=== PATIENT | female | born 1975 | race Caucasian/White ===

== ENCOUNTER → 2017-05-11 | Outpatient (CLI) | payer BC ==
[~2017-05-11] MED LIST: ASPI1TAB PO; DULO60CA6 PO; HYDR-3729 PO; HYDR118S10 PO; IBP600T1 PO; IBUP-1773 PO; MELA1TAB9 PO; MTF500T PO; MULT1TAB86 PO; TOPI50TA13 PO; TPR25T PO; robitussin; tylenol #3 PO
--- NOTE | 2017-05-12 09:45 | Diagnostic Imaging Report ---
Digital mammogram bilateral screening with tomosynthesis. INDICATION: Screening. This study was compared to the prior exams of 03/03/2016, and 10/24/2014. At this time there are no current complaints. 3D tomographic images fail to show any sign of malignancy. The current study was also evaluated with a Computer Aided Detection (CAD) system. FINDINGS: The fibroglandular tissue in both breasts is heterogeneously dense. This does limit the sensitivity of this exam. Overall, there does not appear to have been any significant change when compared to the prior study. No primary or secondary sign of malignancy is noted. Numerous benign-appearing calcifications are again seen along the medial-most portion of each breast. IMPRESSION: There is no radiographic evidence for malignancy. ACR BI-RADS Category 1: Negative. Result letter will be mailed to the patient. Note: At least 10% of breast cancer is not imaged by mammography. Dictated by: Dictated on workstation # [id number]
== END ==
LOC: RAD 10:29
PROVIDERS: ATTEND Internal Medicine
DX: Z12.31 Encounter for screening mammogram for malignant neoplasm of breast (principal)
CPT/HCPCS: 77067

== ENCOUNTER → 2018-11-15 | Outpatient (CLI) | payer BC ==
--- NOTE | 2018-11-15 11:53 | Diagnostic Imaging Report ---
PROCEDURE: US Thyroid. TECHNIQUE: Multiple Real-time grayscale images were obtained of the thyroid in various projections. INDICATION: Hypothyroidism. COMPARISON: No prior studies are available for comparison. FINDINGS: The right lobe of the thyroid measures 5.9 x 1.4 x 1.7 cm and the left lobe measures 5.9 x 1.3 x 1.5 cm. There are two circumscribed hypoechoic nodules in the right lobe of the thyroid with the largest in the lower pole measuring 12 mm x 17 mm x 9 mm. This does have some central cystic changes present. No microcalcifications are seen. A smaller nodule in the upper pole measures approximately 6 mm x 4 mm. The left lobe does contain small hypoechoic nodules with the largest approximately 9 mm x 6 cm x 10 mm. No microcalcifications are seen. There is also a smaller approximately 5 mm nodule. IMPRESSION: There are bilateral thyroid nodules with the largest in the lower pole of the right lobe. Fine needle aspiration of a dominant nodule in the lower pole of the right lobe could be performed if clinically indicated. Dictated by: Dictated on workstation # [id number]
--- NOTE | 2018-11-15 17:57 | Diagnostic Imaging Report ---
INDICATION: Routine screening. Comparison is made with prior mammogram from 05/11/2017 and 03/03/2016. 2-D and 3-D bilateral screening mammography was performed with a Computer Aided Detection (CAD) system. FINDINGS: Both breasts remain heterogeneously dense, limiting the sensitivity of mammography. The parenchymal pattern is stable. There are benign calcifications in both breasts. No dominant mass or malignant appearing microcalcifications are seen. Axillae are unremarkable. IMPRESSION: No mammographic features suspicious for malignancy are identified. ACR BI-RADS Category 2: Benign findings. Result letter will be mailed to the patient. Note: At least 10% of breast cancer is not imaged by mammography. Dictated by: Dictated on workstation # [id number]
== END ==
LOC: RAD 10:07
PROVIDERS: ATTEND Internal Medicine
DX: Z12.31 Encounter for screening mammogram for malignant neoplasm of breast (principal); E04.2 Nontoxic multinodular goiter
CPT/HCPCS: 76536; 77067

== ENCOUNTER → 2018-11-30 | Outpatient (CLI) | payer BC ==
--- NOTE | 2018-12-01 18:30 | Diagnostic Imaging Report ---
INDICATION: Hypothyroidism. TECHNIQUE: Patient was administered 200 ?Ci of I-123 orally and a 4 hour and 24-hour thyroid uptake and scan was performed. FINDINGS: 4-hour uptake is 36%. 24-hour thyroid uptake is 66%. Normal 24-hour thyroid uptake is 10-30%. Thyroid scan does show homogeneous activity throughout both lobes of the thyroid. No definite hot or cold nodule is detected. IMPRESSION: Findings consistent with hyperthyroidism. No definite hot or cold nodule is identified. Dictated by: Dictated on workstation # [id number]
== END ==
LOC: CARD 11:17
PROVIDERS: ATTEND Internal Medicine
DX: E03.9 Hypothyroidism, unspecified (principal)
CPT/HCPCS: 78014

== ENCOUNTER → 2020-06-22 | Outpatient (CLI) | payer BC ==
[~2020-06-22] MED LIST changes: +AZIT250T12 PO
== END ==
LOC: LABNPT 05:41
PROVIDERS: ATTEND Otolaryngology Otolaryngology/Facial Plastic Surgery
DX: G47.33 Obstructive sleep apnea (adult) (pediatric) (principal); Z20.828 Contact with and (suspected) exposure to other viral communicable diseases
CPT/HCPCS: 87635

== ENCOUNTER 2020-06-26 19:25 | Outpatient (CLI) | payer BC | END 2020-06-27 06:27 | disposition home or self-care (01) | LOC: SLEEP 19:25 | PROVIDERS: ATTEND Otolaryngology Otolaryngology/Facial Plastic Surgery | DX: G47.10 Hypersomnia, unspecified (principal); G47.33 Obstructive sleep apnea (adult) (pediatric); Z86.39 Personal history of other endocrine, nutritional and metabolic disease; Z86.69 Personal history of other diseases of the nervous system and sense organs | CPT/HCPCS: 95810 ==

== ENCOUNTER 2023-04-08 19:26 | Emergency (ER) | payer BC, OTHER ==
[~2023-04-08 19:26] MED LIST changes: +TOPI-241 PO; -TOPI50TA13 PO
[2023-04-08 19:49] LABS: BASOPHILS # (AUTO) 0.1 10^3/uL (0.0-0.1); BASOPHILS % (AUTO) 1 % (0-10); EOSINOPHILS # (AUTO) 0.1 10^3/uL (0.0-0.3); EOSINOPHILS % (AUTO) 1 % (0-10); HEMATOCRIT 40 % (35-52); HEMOGLOBIN 13.7 g/dL (11.5-16.0); LYMPHOCYTES # (AUTO) 1.7 10^3/uL (1.0-4.0); LYMPHOCYTES % (AUTO) 29 % (12-44); MEAN CORPUSCULAR HEMOGLOBIN 32 pg (25-34); MEAN CORPUSCULAR HGB CONC 35 g/dL (32-36); MEAN CORPUSCULAR VOLUME 91 fL (80-99); MEAN PLATELET VOLUME 9.4 fL (9.0-12.2); MONOCYTES # (AUTO) 0.4 10^3/uL (0.0-1.0); MONOCYTES % (AUTO) 6 % (0-12); NEUTROPHILS # (AUTO) 3.8 10^3/uL (1.8-7.8); NEUTROPHILS % (AUTO) 63 % (42-75); PLATELET COUNT 240 10^3/uL (130-400)
[2023-04-08 19:59] LABS: PROTHROMBIN TIME PATIENT 13.7 SEC (12.2-14.7)
--- NOTE | 2023-04-08 19:59 | ED Chest Pain ---
General Chief Complaint: Chest Pain Stated Complaint: CHEST TIGHTNESS/DIZZINESS Nursing Triage Note: PT AMB TO RM 5 WITH CC OF CHEST TIGHTNESS X3 DAYS. PT REPORTS TINGLING IN R ARM AND SOA SINCE LAST PM. PT SEEN AT [facility] THIS PM AND SENT TO ED FOR FURTHER CARE. DENIES CARDIAC HX. PT A&OX4 Source: patient Exam Limitations: no limitations History of Present Illness Date Seen by Provider: Apr 08, 2023 Time Seen by Provider: 19:33 Initial Comments 48-year-old female presents to the ER with complaint of chest tightness, pressure at the base of the sternum, and dizziness for the last 3 days. She states that she has been intermittently dizzy for the last month, states that the last 3 days it has been constant. She states that last night she felt like the room was spinning, states currently it feels more like her head is floating. She states that her chest pressure has been constant for the last 3 days. Reports shortness of air since the pain started. Denies nausea, vomiting, and sweating with the pain, denies radiation of the pain. She also reports feeling palpitations. She denies any heart conditions. Past medical history includes seizures and she takes Keppra. She also has Graves' disease, but does not take any medications currently. Allergies and Home Medications Allergies Coded Allergies: No Known Drug Allergies (Unverified , 07/25/13) Patient Home Medication List Home Medication List Reviewed: Yes Azithromycin (Azithromycin) 250 Mg Tablet, 250 MG PO DAILY Prescribed by: JENNIFER LION on 06/02/20 1320 Hydrocodone/Acetaminophen (Lortab 5-325 mg Tablet) 1 Each Tablet, 1 EACH PO Q4H PRN for PAIN Prescribed by: TARYN BERNAL on 05/12/16 1400 Ibuprofen (Ibuprofen) 600 Mg Tablet, 600 MG PO Q6H PRN for PAIN Prescribed by: TARYN BERNAL on 05/12/16 1400 Meclizine HCl (Meclizine HCl) 25 Mg Tablet, 25 MG PO Q6H Prescribed by: Brit Carpenter on 04/08/23 2131 Topiramate (Topiramate) 50 Mg Tablet, 50-100 MG PO BID, (Reported) Entered as Reported by: NIHARIKA PATRICIA on 05/07/16 1421 Review of Systems Review of Systems Constitutional: see HPI Past Utvftaf-Mndspz-Ritwym Hx Patient Social History Tobacco Use?: No Substance use?: No Alcohol Use?: No Pt feels they are or have been: No Immunizations Up To Date Tetanus Booster (TDap): Less than 5yrs Past Medical History Reproductive Disorders: Yes (AUB) Female Reproductive Disorders: Denies Sexually Transmitted Disease: No HIV/AIDS: No Depression Adverse Reaction/Blood Tranf: No Family Medical History No Pertinent Family Hx, Cancer, Diabetes, Hypertension Physical Exam Vital Signs Vital Signs - First Documented 04/08/23 19:34 Pulse 85 Resp 11 B/P (MAP) 125/49 (74) Pulse Ox 98 O2 Delivery Room Air Capillary Refill : Less Than 3 Seconds Height, Weight, BMI Height: 5'4.00" Weight: 153lbs. 0.0oz. 69.579039th; 26.3 BMI Method: General Appearance: No Apparent Distress, WD/WN HEENT: PERRL/EOMI, TMs Normal Neck: Normal Inspection, Supple Respiratory: Chest Non Tender, Lungs Clear, Normal Breath Sounds, No Accessory Muscle Use, No Respiratory Distress Cardiovascular: Regular Rate, Rhythm Extremity: Normal Inspection, Normal Range of Motion, No Pedal Edema Neurologic/Psychiatric: Alert, Normal Mood/Affect Skin: Normal Color, Warm/Dry Progress/Results/Core Measures Results/Orders Lab Results Laboratory Tests Test 04/08/23 19:41 Range/Units White Blood Count 6.0 4.3-11.0 10^3/uL Red Blood Count 4.32 3.80-5.11 10^6/uL Hemoglobin 13.7 11.5-16.0 g/dL Hematocrit 40 35-52 % Mean Corpuscular Volume 91 80-99 fL Mean Corpuscular Hemoglobin 32 25-34 pg Mean Corpuscular Hemoglobin Concent 35 32-36 g/dL Red Cell Distribution Width 12.2 10.0-14.5 % Platelet Count 240 130-400 10^3/uL Mean Platelet Volume 9.4 9.0-12.2 fL Immature Granulocyte % (Auto) 0 % Neutrophils (%) (Auto) 63 42-75 % Lymphocytes (%) (Auto) 29 12-44 % Monocytes (%) (Auto) 6 0-12 % Eosinophils (%) (Auto) 1 0-10 % Basophils (%) (Auto) 1 0-10 % Neutrophils # (Auto) 3.8 1.8-7.8 10^3/uL Lymphocytes # (Auto) 1.7 1.0-4.0 10^3/uL Monocytes # (Auto) 0.4 0.0-1.0 10^3/uL Eosinophils # (Auto) 0.1 0.0-0.3 10^3/uL Basophils # (Auto) 0.1 0.0-0.1 10^3/uL Immature Granulocyte # (Auto) 0.0 0.0-0.1 10^3/uL Prothrombin Time 13.7 12.2-14.7 SEC INR Comment 1.0 0.8-1.4 Activated Partial Thromboplast Time 26 24-35 SEC Sodium Level 135 135-145 MMOL/L Potassium Level 3.8 3.6-5.0 MMOL/L Chloride Level 105 98-107 MMOL/L Carbon Dioxide Level 20 L 21-32 MMOL/L Anion Gap 10 5-14 MMOL/L Blood Urea Nitrogen 17 7-18 MG/DL Creatinine 1.05 0.60-1.30 MG/DL Estimat Glomerular Filtration Rate 66 BUN/Creatinine Ratio 16 Glucose Level 174 H 70-105 MG/DL Calcium Level 9.4 8.5-10.1 MG/DL Corrected Calcium 9.1 8.5-10.1 MG/DL Magnesium Level 1.9 1.6-2.4 MG/DL Total Bilirubin 1.0 0.1-1.0 MG/DL Aspartate Amino Transf (AST/SGOT) 13 5-34 U/L Alanine Aminotransferase (ALT/SGPT) 10 0-55 U/L Alkaline Phosphatase 62 40-136 U/L Troponin I < 0.028 <0.028 NG/ML Total Protein 7.0 6.4-8.2 GM/DL Albumin 4.4 3.2-4.5 GM/DL Lipase 30 8-78 U/L Thyroid Stimulating Hormone (TSH) 1.47 0.35-4.94 UIU/ML My Orders Orders - BRIT HINES [employer] Cbc With Automated Diff (04/08/23 19:33) Magnesium (04/08/23 19:33) Chest 1 View, Ap/Pa Only (04/08/23 19:33) Ekg Tracing (04/08/23 19:33) Comprehensive Metabolic Panel (7/12/23 19:33) Protime With Inr (04/08/23 19:33) Partial Thromboplastin Time (04/08/23 19:33) Monitor-Rhythm Ecg Trace Only (04/08/23 19:33) Ed Iv/Invasive Line Start (04/08/23 19:33) Troponin I [place] (04/08/23 19:33) Ns Iv 1000 Ml (Sodium Chloride 0.9%) (04/08/23 20:00) Orthostatic Vital Signs (Adult (04/08/23 19:55) Lipase (04/08/23 19:59) Thyroid Stimulating Hormone (04/08/23 20:08) Lidocaine 2% Viscous 15 Ml (Xylocaine Vi (04/08/23 21:15) Antacid Suspension (Mylanta Suspension (04/08/23 21:15) Medications Given in ED Vital Signs/I&O 04/08/23 04/08/23 04/08/23 19:34 20:03 21:38 Pulse 85 80 80 92 102 Resp 11 16 B/P (MAP) 125/49 (74) 104/65 (78) 108/77 110/72 (85) 117/73 (88) Pulse Ox 98 98 O2 Delivery Room Air Room Air 04/09/23 00:00 Intake Total 1000 ml Balance 1000 ml Blood Pressure Mean: 74 Progress Progress Note : Progress Note Patient seen and evaluated, resting comfortably in bed, no acute distress. Based on exam and symptoms, work-up initiated including CBC, CMP, magnesium, coags, troponin, lipase, TSH, EKG, chest x-ray, orthostatic vitals, and IV fluids. 2127 Labs and imaging reviewed. CBC grossly normal. CMP shows slightly decreased CO2 20, elevated glucose 174. Magnesium normal 1.4. Troponin normal. Lipase normal. TSH normal. Coags normal. Chest x-ray negative for acute cardiopulmonary findings. Results discussed with patient. I have given patient a GI cocktail, patient states that the pressure in her epigastric region did not seem to change, but she is feeling generally better. After talking with patient some more, it seems as though her dizziness is vertigo. States that it usually feels as though the room is spinning. Will discharge with prescription for meclizine. Patient has known history of diabetes, patient states she did eat right before she got here. Instructed to follow-up with primary care provider regarding elevated blood sugar. Patient's mother has diabetes. Patient has a follow-up with her primary care provider on Thursday, instructed to keep that appointment. Discharge instructions and return precautions provided. Initial ECG Impression Date: Apr 08, 2023 Initial ECG Impression Time: 19:42 Initial ECG Rate: 87 Initial ECG Rhythm: Normal Sinus Initial ECG Intervals: Normal Initial ECG Impression: Nonspecific Changes Initial ECG Comparisson: No Previous ECG Available Comment No significant Q waves, ST elevation, or T wave inversion. Diagnostic Imaging Diagonstic Imaging: Xray Plain Films/CT/US/NM/MRI: chest Comments [facility]. [place], [place] NAME: ASTON DISLA [facility] REC#: [id number] PT STATUS: REG ER : 1975 PHYSICIAN: BRIT HINES APRN ADMIT DATE: 04/08/23/ER Signed Date of Exam:04/08/23 CHEST 1 VIEW, AP/PA ONLY Indication: Chest pain Frontal chest obtained 7:22 p.m. Heart and mediastinal silhouette are normal in appearance. The lungs are clear. There is no pneumothorax or pleural fluid. IMPRESSION: Negative chest. Dictated by: Dictated on workstation # [id number] Dict: 04/08/231957 Trans: 04/08/232030 CV [id number] Interpreted by: СВЕТЛАНА NICHOLS MD Electronically signed by: СВЕТЛАНА NICHOLS MD 04/08/232030 Departure Impression Primary Impression: Chest pain Qualified Codes: R07.9 - Chest pain, unspecified Additional Impression: Vertigo Disposition: 01 HOME, SELF-CARE Condition: Stable Departure-Patient Inst. Decision time for Depature: 21:29 Referrals: NO,LOCAL PHYSICIAN (PCP/Family) Primary Care Physician Patient Instructions: Vertigo (a Type of Dizziness) (DC) Add. Discharge Instructions: Take meclizine every 6 hours as needed for vertigo. It may make you sleepy. Follow-up with your primary care provider on Thursday as scheduled. Discuss your elevated blood sugar with your primary care provider. Return for severe chest pain, shortness of breath, severe dizziness, or any other new, concerning, or worsening symptoms. All discharge instructions reviewed with patient and/or family. Voiced understanding. Scripts Meclizine HCl (Meclizine HCl) 25 Mg Tablet 25 MG PO Q6H, #28 TAB 0 Refills Prov: BRIT HINES APRN 04/08/23 BRIT HINES APRN Apr 08, 2023 19:59
[2023-04-08] MEDS ORDERED: NS IV 1000 ML 1,000 ML IV SCH (20:00)
[2023-04-08 20:03] VITALS: BP_SYST 104; BP_SYST 110; BP_SYST 117; BP_DIAS 65; BP_DIAS 72; BP_DIAS 73
--- NOTE | 2023-04-08 20:07 | Diagnostic Imaging Report ---
Indication: Chest pain Frontal chest obtained 7:22 p.m. Heart and mediastinal silhouette are normal in appearance. The lungs are clear. There is no pneumothorax or pleural fluid. IMPRESSION: Negative chest. Dictated by: Dictated on workstation # [id number]
[2023-04-08 20:13] LABS: ALANINE AMINOTRANSFERASE 10 U/L (0-55); ALBUMIN 4.4 GM/DL (3.2-4.5); ALKALINE PHOSPHATASE 62 U/L (40-136); BUN/CREATININE RATIO 16; CALCIUM 9.4 MG/DL (8.5-10.1); CARBON DIOXIDE 20 MMOL/L (21-32); CHLORIDE 105 MMOL/L (98-107); CREATININE SERUM 1.05 MG/DL (0.60-1.30); GFR ESTIMATED 66; GLUCOSE 174 MG/DL (70-105); MAGNESIUM 1.9 MG/DL (1.6-2.4); POTASSIUM 3.8 MMOL/L (3.6-5.0); SODIUM 135 MMOL/L (135-145)
[2023-04-08] MEDS ORDERED: LIDOCAINE 2% VISCOUS 15 ML UDC PO ONE (21:15)
[2023-04-08] MEDS ORDERED: ANTACID SUSP 30 ML UDC (MYLANTA) PO ONE (21:15)
[2023-04-08] MEDS ORDERED: MECL-149 PO (21:31)
[2023-04-08 21:38] VITALS: BP 108/77
== END 2023-04-08 21:38 | disposition home or self-care (01) ==
LOC: EDUNIT# 19:26 → ER 19:30
DX: R07.89 Other chest pain (principal); R42 Dizziness and giddiness; R56.9 Unspecified convulsions; E11.9 Type 2 diabetes mellitus without complications; Z79.899 Other long term (current) drug therapy
CPT/HCPCS: 36415; 71045; 80053; 83690; 83735; 84443; 84484; 85025; 85610; 85730; 93005; 93041